=== PATIENT | female | born 1960 | race Two or more races ===

== ENCOUNTER 2019-10-28 18:53 | Emergency (ER) | payer BC, OTHER ==
[~2019-10-28] VITALS: Ht 160 cm; Wt 63.5 kg
[2019-10-28] MEDS ORDERED: SODIUM CHLORIDE 0.9% 1,000 ML IV ONE ×2 (19:15)
[2019-10-28 20:39] LABS: Basophils % (auto) 0.4 % (0.0-2.0); Eosinophils # (auto) 0.1 10 ^3/uL (0-0.8); Eosinophils % (auto) 0.5 % (0.0-7.0)
[2019-10-28 20:42] LABS: Basophils # (auto) 0 10 ^3/uL (0-0.2); Hematocrit 30.3 % (36.0-46.0); Hemoglobin 9.7 g/dL (12.2-16.2); Lymphocytes # (auto) 2.9 10 ^3/uL (0.4-5.4); Lymphocytes % (auto) 24.9 % (10.0-50.0); Mean Corpuscular Hemoglobin 27.2 pg (28.0-32.0); Monocytes # (auto) 0.5 10 ^3/uL (0-1.3); Monocytes % (auto) 4.5 % (0.0-12.0); Neutrophils # (auto) 8.2 10 ^3/uL (1.6-8.6); Neutrophils % (auto) 69.7 % (37.0-80.0); Platelet Count (auto) 286 10^3/uL (140-450); Red Blood Cells 3.56 10^6/uL (4.0-5.20); Red Cell Distribution Width 16.1 % (11.8-14.3); White Blood Cell 11.7 10^3/uL (4.4-10.8)
[2019-10-28 20:56] LABS: Alanine Aminotransferase 15 U/L (13-56); Albumin 3.3 g/dL (3.4-5.0); Anion Gap 7 (5-15); Blood Alcohol < 3.0 mg/dL (0-5); Blood Urea Nitrogen 10 mg/dL (7-18); Calcium 7.9 mg/dL (8.5-10.1); Carbon Dioxide 25 mmol/L (21-32); Chloride 102 mmol/L (98-107); Glucose 328 mg/dL (74-106); INR 1.02 (0.9-1.15); Partial Thromboplastin Time 24.5 sec (23.64-32.05); Potassium 3.6 mmol/L (3.5-5.1); Sodium 134 mmol/L (136-145)
[2019-10-28 21:02] LABS: Alkaline Phosphatase 112 U/L (45-117); Aspartate Aminotransferase 10 U/L (15-37); BUN/Creatinine Ratio 15.2; Bilirubin, Total 0.2 mg/dL (0.2-1.0); GFR African American 117 mL/min; GFR Non-African American 97 mL/min; Total Protein 6.8 g/dL (6.4-8.2)
[2019-10-28] MEDS ORDERED: IOHEXOL 350 MG/ML 100ML IJ ONE (22:13)
[2019-10-28] MEDS ORDERED: InsuLIN REG 1unit/0.01ml Soln (100units/ml) IV ONE (22:15)
[2019-10-29 00:01] VITALS: BP 119/51
== END 2019-10-29 00:02 | disposition home or self-care (01) ==
LOC: EDBD 18:53 → ER 18:53
DX: E11.65 Type 2 diabetes mellitus with hyperglycemia (principal); Z91.14 Patient's other noncompliance with medication regimen
CPT/HCPCS: 36415; 36600; 71045; 71275; 80053; 80320; 82010; 82805; 82962; 83605; 83880; 84484; 85025; 85379; 85610; 85730; 96361; 96374; 99285; J1815; Q9967